=== PATIENT | female | born 1975 | race Two or more races ===

== ENCOUNTER 2021-04-21 19:05 | Emergency (ER) | payer SELFPAY ==
[~2021-04-21] VITALS: Ht 170.2 cm; Wt 54.3 kg
[2021-04-21 19:09] VITALS: BP 107/84
== END 2021-04-21 21:00 | disposition home or self-care (01) ==
LOC: ER 19:06
DX: K21.9 Gastro-esophageal reflux disease without esophagitis (principal); G89.29 Other chronic pain; Z87.11 Personal history of peptic ulcer disease; Z76.0 Encounter for issue of repeat prescription; Z88.6 Allergy status to analgesic agent; Z88.8 Allergy status to other drugs, medicaments and biological substances; Z88.0 Allergy status to penicillin; Z88.1 Allergy status to other antibiotic agents
CPT/HCPCS: 99282